=== PATIENT | male | born 1990 | race Caucasian/White ===

== ENCOUNTER 2016-07-25 22:35 | Emergency (ER) | payer OTHER ==
[~2016-07-25] VITALS: Ht 167.6 cm; Wt 75.0 kg
[~2016-07-25 22:35] MED LIST: CYCL-319 PO; IBUP-1542 PO; IBUP400T22 PO
[2016-07-25 22:44] VITALS: Ht 167.6 cm; Wt 75.0 kg
--- NOTE | 2016-07-26 00:39 | ERD ---
ER Documentation Chief Complaint Date/Time DATE: 07/26/16 TIME: 00:33 Chief Complaint left 4th finger pain/injury. got caught on a door yesterday HPI 25-year-old male complaining of left ring finger pain. Patient stated that he was trying to push close a gate yesterday, when the gate stop and expectantly, hyperextended his left ring finger. He is complaining of pain at the PIP joint. He is unable to bend his affected finger due to pain. Denies any other injuries. ROS All systems reviewed and are negative except as per history of present illness. Medications Home Meds Active Scripts Ibuprofen* (Motrin*) 600 Mg Tab, 600 MG PO Q6H Y for PAIN AND OR ELEVATED TEMP, #30 TAB Prov:ALICIA GREWAL CONCRETE ENGINEERING TECHNICIAN 07/26/16 Cyclobenzaprine Hcl* (Cyclobenzaprine Hcl*) 10 Mg Tablet, 10 MG PO TID, #15 TAB Prov:RAVEN GARZA-C 11/23/15 Ibuprofen* (Motrin*) 400 Mg Tab, 400 MG PO Q6H Y for PAIN AND OR ELEVATED TEMP, #30 TAB Prov:RAVEN GARZA-C 11/23/15 Ibuprofen* (Motrin*) 600 Mg Tab, 600 MG PO Q6, #30 TAB Prov:KAREN WHITE 11/20/14 Allergies Allergies: Coded Allergies: No Known Allergy (Unverified , 07/25/16) PMhx/Soc Medical and Surgical Hx: pt denies Medical Hx, pt denies Surgical Hx Hx Alcohol Use: Yes (SOCIAL) Hx Substance Use: Yes (MJ) Hx Tobacco Use: No Smoking Status: Never smoker Physical Exam Vitals Vital Signs Date Time Temp Pulse Resp B/P Pulse Ox O2 Delivery O2 Flow Rate FiO2 07/25/16 22:44 98.7 76 20 131/63 99 Physical Exam General impression: Well-developed, well-nourished. Alert, oriented, in no acute distress Head: Normocephalic, atraumatic. Neck: Supple, nontender. No lymphadenopathy. No nuchal rigidity. Respiration: Normal respiratory effort. Lungs clear to auscultate bilaterally. No wheezes, rales or rhonchi. Cardiovascular: Regular rate and rhythm. No murmurs or extra heart sounds. Abdomen: Abdomen normal to inspection. Nontender. No masses or organomegaly. Bowel sounds normal. Back: Normal to inspection. No midline spine tenderness. No CVA tenderness. Extremities: Left ring finger PIP joint swollen, and tender. Decreased range of motion due to pain. Neurovascularly intact distal to the injury. Neuro: Mental status normal, speech normal. STITCH BONDING MACHINE OPERATOR grossly intact. Skin: Normal turgor. No rash or lesions. Psych: Normal mood and affect. Results 24 hrs Current Medications Medications (Trade) Dose Ordered Sig/Dipak Route PRN Reason Start Time Stop Time Status Last Admin Dose Admin Ibuprofen (Motrin) 600 mg ONCE ONCE PO 07/26/16 01:00 07/26/16 01:01 DC 07/26/16 00:49 Procedures/MDM X-ray of left ring finger negative for fractures or dislocations. Likely patient sustained a sprain of the finger. The area of injury was immobilized with a metal finger splint. Patient was noted to be comfortable and neurovascularly intact both before and after the immobilization. Patient appears well, stable for discharge and outpatient management. Medical decision making shared with patient and family. Education provided to patient and family. Patient and family expressed understanding of the plan. Medications on discharge: Ibuprofen. Follow-up: Primary care provider in 2-3 days or return to ED if worse. ALICIA GREWAL NP Jul 26, 2016 00:39
[2016-07-26] MEDS ORDERED: IBUPROFEN 600 MG TAB PO ONE (01:00)
--- NOTE | 2016-07-26 01:34 | RADRPT ---
PROCEDURE: LEFT FOURTH DIGIT - 3 VIEWS CLINICAL INDICATION: 25-year-old male with left fourth digit pain. TECHNIQUE: AP, lateral and oblique views of the left fourth digit were obtained. The images review ed on a PACS workstation. COMPARISON: None. FINDINGS: The bones of the fourth digit appear intact, with no evidence of fracture, dislocation, or subluxati on. The joint spaces are preserved. Bone mineralization is within normal limits. No radiopaque fore ign body is seen. IMPRESSION: Unremarkable left fourth digit radiographs. .Gabriele Boone MD, MD Date Time Electronically viewed and signed by .Gabriele Boone MD, MD on 07/26/2016 01:34 .M/
[2016-07-26] MEDS ORDERED: IBUP-1542 PO (01:43)
[2016-07-26 01:53] VITALS: BP 127/78; PULSE 62; RESP 16
== END 2016-07-26 01:54 | disposition home or self-care (01) ==
LOC: FTE 22:35
DX: S69.92XA Unspecified injury of left wrist, hand and finger(s), initial encounter (principal); W23.1XXA Caught, crushed, jammed, or pinched between stationary objects, initial encounter; Y92.9 Unspecified place or not applicable
CPT/HCPCS: 29130; 73140; Z7610

== ENCOUNTER 2017-07-06 23:32 | Emergency (ER) | END 2017-07-07 03:38 | disposition home or self-care (01) ==

== ENCOUNTER 2018-06-17 02:24 | Emergency (ER) | payer OTHER ==
[~2018-06-17] VITALS: Ht 167.6 cm; Wt 76.4 kg
[~2018-06-17 02:24] MED LIST changes: -CYCL-319 PO; +CYCL10TA7 PO; +HYDR-4011 PO; +IBUP-1561 PO; -IBUP400T22 PO
[2018-06-17 02:28] VITALS: BP 132/88; PULSE 79; RESP 20; Ht 167.6 cm; Wt 76.4 kg
[2018-06-17] MEDS ORDERED: ACETAMINOPHEN 325 MG TAB PO ONE (03:00)
[2018-06-17] MEDS ORDERED: DIPHTH/TET/ACEL PERTUSS (ADULT) 0.5 ML VIAL IM* ONE (03:00)
[2018-06-17] MEDS ORDERED: AMOXICILLIN/CLAV 875 MG TAB PO ONE (03:00)
[2018-06-17] MEDS ORDERED: LIDOCAINE 1% (MPF) 5 ML VIAL INFIL ONE (03:30)
[2018-06-17] MEDS ORDERED: ACET500C5 PO (03:46)
[2018-06-17] MEDS ORDERED: AMOX1TAB10 PO (03:46)
--- NOTE | 2018-06-17 03:49 | ERD ---
ER Documentation Chief Complaint Chief Complaint ATTACKED BY DOG. LAC TO NOSE. TRIED TO BREAK UP DOG FIGHT HPI 27-year-old male presents with a dog bite laceration over his nasal bridge. He was trying to break up a fight between 2 dogs. Tetanus is not up-to-date. Denies any loss of consciousness, or bony injury by report. ROS All systems reviewed and are negative except as per history of present illness. Medications Home Meds Active Scripts Acetaminophen* (Tylophen*) 500 Mg Capsule, 1 CAP PO Q6H PRN for PAIN AND OR ELEVATED TEMP, #15 CAP Prov:FRANCES CARABALLO MD 06/17/18 Amoxicillin/Potassium Clav (Amox-Clav 875-125 mg Tablet) 875-125 mg Tab, 1 TAB PO BID for 7 Days, #14 TAB Prov:FRANCES CARABALLO MD 06/17/18 Hydrocodone/Acetaminophen (Retsof 5-325 Tablet) 1 Each Tablet, 1 TAB PO Q6H PRN for SEVERE PAIN LEVEL 7-10, #20 TAB Prov:DINA RUBY RIPRAP PLACING SUPERVISOR 07/07/17 Cyclobenzaprine Hcl* (Cyclobenzaprine Hcl*) 10 Mg Tablet, 10 MG PO TID, #15 TAB Prov:DINA RUBY RIPRAP PLACING SUPERVISOR 07/07/17 Ibuprofen* (Motrin*) 600 Mg Tab, 600 MG PO Q6H PRN for PAIN AND OR ELEVATED TEMP , #30 TAB Prov:DINA RUBY RIPRAP PLACING SUPERVISOR 07/07/17 Ibuprofen* (Motrin*) 600 Mg Tab, 600 MG PO Q6H PRN for PAIN AND OR ELEVATED TEMP, #30 TAB Prov:ALICIA GREWAL NP 07/26/16 Cyclobenzaprine Hcl* (Cyclobenzaprine Hcl*) 10 Mg Tablet, 10 MG PO TID, #15 TAB Prov:RAVEN GARZA PA-C 11/23/15 Ibuprofen* (Motrin*) 400 Mg Tab, 400 MG PO Q6H PRN for PAIN AND OR ELEVATED TEMP, #30 TAB Prov:RAVEN GARZA PA-C 11/23/15 Ibuprofen* (Motrin*) 600 Mg Tab, 600 MG PO Q6, #30 TAB Prov:KAREN WHITE 11/20/14 Allergies Allergies: Coded Allergies: No Known Allergy (Unverified , 07/25/16) PMhx/Soc Medical and Surgical Hx: pt denies Medical Hx, pt denies Surgical Hx History of Surgery: No Anesthesia Reaction: No Hx Neurological Disorder: No Hx Respiratory Disorders: No Hx Cardiac Disorders: No Hx Psychiatric Problems: No Hx Miscellaneous Medical Probl: No Hx Alcohol Use: No Hx Substance Use: Yes (marijuana use) Hx Tobacco Use: No FmHx Family History: No diabetes, No coronary disease, No other Physical Exam Vitals Vital Signs Date Temp Pulse Resp B/P (MAP) Pulse Ox O2 O2 Flow FiO2 Time Delivery Rate 06/17/18 98.0 79 20 132/88 100 02:28 (103) Physical Exam Const: No acute distress Head: Atraumatic Eyes: Normal Conjunctiva ENT: Normal External Ears, Nose and Mouth. Multiple lacerations on the bridg e of the nose. 2 small superficial wounds less than 0.5 cm. There is 1 0.75 cm laceration on the superior bridge approximately 1.2 cm flap type lesion on the right middle bridge. Septal hematoma, bony tenderness or deformities or crepitance. Neck: Full range of motion. No meningismus. Resp: Clear to auscultation bilaterally Cardio: Regular rate and rhythm, no murmurs Abd: Soft, non tender, non distended. Normal bowel sounds Skin: No petechiae or rashes Back: No midline or flank tenderness Ext: No cyanosis, or edema Neur: Awake and alert Psych: Normal Mood and Affect Results 24 hrs Current Medications Medications Dose Sig/Dipak Start Time Status Last (Trade) Ordered Route PRN Stop Time Admin Dose Reason Admin 650 mg ONCE ONCE 06/17/18 DC Acetaminophen PO 03:00 06/17/18 (Tylenol 03:01 Tab) Diphtheria/ 0.5 ml ONCE ONCE 06/17/18 DC Tetanus/Acell IM* 03:00 06/17/18 Pertussis 03:01 (Adacel) 875 mg ONCE ONCE 06/17/18 DC Amoxicillin/ PO 03:00 06/17/18 Clavulanate 03:01 Potassium (Augmentin) Lidocaine 5 ml ONCE ONCE 06/17/18 DC (Xylocaine INFIL 03:30 06/17/18 1% (Mpf)) 03:31 Procedures/MDM AP/lateral 2 view nasal bone x-ray shows no appreciable fracture, foreign body. Impression-normal appearing nasal bone x-ray patient was counseled on risk of s uturing dog bite lacerations. Given the poor cosmesis recommending a few sutures for approximation patient agrees with the plan. Seizure note-patient was given a tetanus booster. Nasal lacerations were irrigated copiously with normal saline. 1 cc lidocaine was used for local filtration. 2 6-0 nylon sutures were used to approximate the superior laceration and 3 were placed on the middle laceration to reapproximate the flap. Patient tolerated procedure well and the wound was dressed. Patient was given Augmentin 875 mg by mouth. Discharged home with a prescription of Tylenol, recommendations for 2-day wound check in 5 days suture removal. Should return sooner for fevers, redness, new or worsening symptoms. The patient was stable with no new complaints during the ER course. Clinically, there is no current evidence to suggest meningitis, sepsis, acute abdomen, pneumonia, stroke, acute coronary syndrome, pulmonary embolism, aortic dissection or any other emergent condition appearing to require further e valuation or hospitalization. Patient counseled regarding my diagnostic impression and care plan. Prior to discharge all questions answered. Pt agrees with treatment plan and understands strict return precautions. Pt is instructed to follow up with primary care provider within 24-48 hours. Precautionary instructions provided including instructions to return to the ER if not improv ing or for any worsening or changing symptoms or concerns. Departure Diagnosis: Primary Impression: Laceration Additional Impression: Dog bite Encounter type: initial encounter Qualified Codes: W54.0XXA - Bitten by dog, initial encounter Condition: Stable Patient Instructions: Dog Bite, Laceration, Face (Suture Or Tape) Additional Instructions: Wound check in 2 days and suture removal in 5 days. Recheck sooner for new or worsening symptoms. FRANCES CARABALLO MD Jun 17, 2018 03:49
== END 2018-06-17 05:20 | disposition home or self-care (01) ==
LOC: FTE 02:24
DX: S01.21XA Laceration without foreign body of nose, initial encounter (principal); W54.0XXA Bitten by dog, initial encounter; Y92.9 Unspecified place or not applicable; Z23 Encounter for immunization
CPT/HCPCS: 12013; 70160; 90471; 90715; Z7502; Z7610

== ENCOUNTER 2018-06-22 13:48 | Emergency (ER) | payer OTHER ==
[~2018-06-22] VITALS: Ht 167.6 cm; Wt 80.0 kg
[~2018-06-22 13:48] MED LIST changes: +ACET500C5 PO; +AMOX1TAB10 PO
[2018-06-22 14:11] VITALS: Ht 167.6 cm; Wt 80.0 kg
--- NOTE | 2018-06-22 15:30 | ERD ---
ER Documentation Chief Complaint Chief Complaint 2 DAY SUTURE CHECK HPI This is a 27-year-old male presents ED for wound check. Patient states that he had sutures placed on June 17, 2018. Patient denies any fever, chills, redness, swelling, tenderness or warmth along wound. No purulent drainage coming from wound. No complaints at this time ROS All systems reviewed and are negative except as per history of present illness. Medications Home Meds Active Scripts Acetaminophen* (Tylophen*) 500 Mg Capsule, 1 CAP PO Q6H PRN for PAIN AND OR ELEVATED TEMP, #15 CAP Prov:FRANCES CARABALLO MD 06/17/18 Amoxicillin/Potassium Clav (Amox-Clav 875-125 mg Tablet) 875-125 mg Tab, 1 TAB PO BID for 7 Days, #14 TAB Prov:FRANCES CARABALLO MD 06/17/18 Hydrocodone/Acetaminophen (Searcy 5-325 Tablet) 1 Each Tablet, 1 TAB PO Q6H PRN for SEVERE PAIN LEVEL 7-10, #20 TAB Prov:DINA RUBY NP 07/07/17 Cyclobenzaprine Hcl* (Cyclobenzaprine Hcl*) 10 Mg Tablet, 10 MG PO TID, #15 TAB Prov:DINA RUBY NP 07/07/17 Ibuprofen* (Motrin*) 600 Mg Tab, 600 MG PO Q6H PRN for PAIN AND OR ELEVATED TEMP, #30 TAB Prov:DINA RUBY MEDICAL DRIVER 07/07/17 Ibuprofen* (Motrin*) 600 Mg Tab, 600 MG PO Q6H PRN for PAIN AND OR ELEVATED TEMP, #30 TAB Prov:ALICIA GREWAL NP 07/26/16 Cyclobenzaprine Hcl* (Cyclobenzaprine Hcl*) 10 Mg Tablet, 10 MG PO TID, #15 TAB Prov:RAVEN GARZA PA-C 11/23/15 Ibuprofen* (Motrin*) 400 Mg Tab, 400 MG PO Q6H PRN for PAIN AND OR ELEVATED TEMP, #30 TAB Prov:RAVEN GARZA PA-C 11/23/15 Ibuprofen* (Motrin*) 600 Mg Tab, 600 MG PO Q6, #30 TAB Prov:KAREN WHITE 11/20/14 Allergies Allergies: Coded Allergies: No Known Allergy (Unverified , 06/22/18) PMhx/Soc Medical and Surgical Hx: pt denies Medical Hx, pt denies Surgical Hx History of Surgery: No Anesthesia Reaction: No Hx Neurological Disorder: No Hx Respiratory Disorders: No Hx Cardiac Disorders: No Hx Psychiatric Problems: No Hx Miscellaneous Medical Probl: No Hx Alcohol Use: No Hx Substance Use: Yes (marijuana use) Hx Tobacco Use: No Smoking Status: Never smoker FmHx Family History: No diabetes Physical Exam Vitals Vital Signs Date Temp Pulse Resp B/P (MAP) Pulse Ox O2 O2 Flow FiO2 Time Delivery Rate 06/22/18 98.1 78 18 125/77 97 14:11 (93) Physical Exam Const: No acute distress Head: Atraumatic Eyes: Normal Conjunctiva ENT: Normal External Ears, Nose and Mouth. Neck: Full range of motion. No meningismus. Resp: Clear to auscultation bilaterally Cardio: Regular rate and rhythm, no murmur Skin: Sutures in place with good wound approximation, no redness, swelling, tenderness or warmth, no purulent drainage Psych: Normal Mood and Affect Procedures/MDM ER COURSE: The patient was stable throughout ED course. I kept the patient and/or family informed of laboratory and diagnostic imaging results throughout the emergency room course. The patient was promptly evaluated and a treatment plan was devised based on H&P and other data. This plan was discussed with the patient who agreed and had no further questions or concerns prior to discharge. MEDICAL DECISION MAKIN-year-old male presents here for wound check. The wound is clean, dry and intact with no evidence of infection. Patient has good wound closure and good wound approximation. There is no surrounding erythema, warmth, tenderness or lymphatic streaking. Low suspicion for deep space infection, compartment syndrome, cellulitis, neurovascular injury, sepsis. Patient's vitals are stable and she can be managed with close outpatient follow-up. Advised patient have sutures removed in 5 days. Advised patient follow-up with primary care in the next 48 hours. Advised to return to ED with any worsening symptoms. DISPOSITION PLAN: We discussed follow up with the patient's primary care doctor within 24 to 48 hours. Patient counseled regarding my diagnostic impression and care plan. Prior to discharge all questions answered. Pt agrees with treatment plan and understands strict return precautions. Precautionary instructions provided including instructions to return to the ER if not improving or for any worsening or changing symptoms or concerns. ExitCare instructions provided. Prior to discharge, patients vital signs have been reviewed SPECIALIST FOLLOW UP RECOMMENDED: None Patient has been advised to follow up with primary care in 1-2 days. Disclaimer: Inadvertent spelling and grammatical errors are likely due to EHR/dictation software use and do not reflect on the overall quality of patient care. Also, please note that the electronic time recorded on this note does not necessarily reflect the actual time of the patient encounter. Departure Diagnosis: Primary Impression: Encounter for wound re-check Condition: Stable Patient Instructions: Wound Check, Lac F/U (No Infection) Referrals: [facility] YOU HAVE RECEIVED A MEDICAL SCREENING EXAM AND THE RESULTS INDICATE THAT YOU DO NOT HAVE A CONDITION THAT REQUIRES URGENT TREATMENT IN THE EMERGENCY DEPARTMENT. FURTHER EVALUATION AND TREATMENT OF YOUR CONDITION CAN WAIT UNTIL YOU ARE SEEN IN YOUR DOCTORS OFFICE WITHIN THE NEXT 1-2 DAYS. IT IS YOUR RESPONSIBILITY TO MAKE AN APPOINTMENT FOR FOLOW-UP CARE. IF YOU HAVE A PRIMARY DOCTOR --you should call your primary doctor and schedule an appointment IF YOU DO NOT HAVE A PRIMARY DOCTOR YOU CAN CALL OUR PHYSICIAN REFERRAL HOTLINE AT IF YOU CAN NOT AFFORD TO SEE A PHYSICIAN YOU CAN CHOSE FROM THE FOLLOWING [facility] CLINICS [facility] [address] [facility]. [facility] [address] [facility] [address] [facility]. [facility] [address] [facility]. [facility] [address] [facility]. [facility]. [address] Additional Instructions: Return in 5 days to have your sutures removed. Patient advised to return to the ED immediately for new or worsening symptoms. Patient advised to follow up with primary care provider in the next 24-48 hours. Patient verbalized understanding and agrees with treatment plan and course of action. If patient has no primary care they may follow up with one of the community clinics listed on the following page or one of the options listed below [facility] + [facility] [address] [place] [id number] or [facility] [address] [place] [address] or [facility] [address] [place] [address] EKATERINA LEAL PA-C Jun 22, 2018 15:30
[2018-06-22 15:42] VITALS: BP 130/81; PULSE 79; RESP 18
[2018-06-27] MEDS ORDERED: CLIN300C10 PO (16:19)
== END 2018-06-22 16:03 | disposition home or self-care (01) ==
LOC: FTE 13:48
DX: Z48.01 Encounter for change or removal of surgical wound dressing (principal)
CPT/HCPCS: 99281

== ENCOUNTER 2018-06-28 14:38 | Emergency (ER) | payer OTHER ==
[~2018-06-28] VITALS: Wt 80.6 kg
[~2018-06-28 14:38] MED LIST changes: +CLIN300C10 PO
[2018-06-28 14:40] VITALS: BP 136/75; PULSE 77; RESP 20
--- NOTE | 2018-06-28 15:44 | ERD ---
ER Documentation Chief Complaint Chief Complaint wound rechk: bridge of nose. seen here yesterday. HPI 27-year-old male patient with no significant past medical history presents to the ED for a suture removal of his nose. States that he sustained a dog bite, 10 days ago on June 17, 2017. States that he finished all of his antibiotics. Denies any fever, chills, loss of sensation, loss of range of motion. Patient reports that he was updated with his tetanus vaccine. Patient reports that he has been taking new antibiotic, clindamycin starting yesterday. ROS All systems reviewed and are negative except as per history of present illness. Medications Home Meds Active Scripts Clindamycin Hcl* (Clindamycin Hcl*) 300 Mg Capsule, 300 MG PO TID for 5 Days, CAP Prov:RAVEN GARZA PA-C 06/27/18 Acetaminophen* (Tylophen*) 500 Mg Capsule, 1 CAP PO Q6H PRN for PAIN AND OR ELEVATED TEMP, #15 CAP Prov:FRANCES CARABALLO MD 06/17/18 Amoxicillin/Potassium Clav (Amox-Clav 875-125 mg Tablet) 875-125 mg Tab, 1 TAB PO BID for 7 Days, #14 TAB Prov:FRANCES CARABALLO MD 06/17/18 Hydrocodone/Acetaminophen (Solen 5-325 Tablet) 1 Each Tablet, 1 TAB PO Q6H PRN for SEVERE PAIN LEVEL 7-10, #20 TAB Prov:DINA RUBY NP 07/07/17 Cyclobenzaprine Hcl* (Cyclobenzaprine Hcl*) 10 Mg Tablet, 10 MG PO TID, #15 TAB Prov:DINA RUBY NP 07/07/17 Ibuprofen* (Motrin*) 600 Mg Tab, 600 MG PO Q6H PRN for PAIN AND OR ELEVATED TEMP, #30 TAB Prov:DINA RUBY NP 07/07/17 Ibuprofen* (Motrin*) 600 Mg Tab, 600 MG PO Q6H PRN for PAIN AND OR ELEVATED TEMP, #30 TAB Prov:ALICIA GREWAL NP 07/26/16 Cyclobenzaprine Hcl* (Cyclobenzaprine Hcl*) 10 Mg Tablet, 10 MG PO TID, #15 TAB Prov:RAVEN GARZA Kathy ELLSWORTH 11/23/15 Ibuprofen* (Motrin*) 400 Mg Tab, 400 MG PO Q6H PRN for PAIN AND OR ELEVATED TEMP, #30 TAB Prov:RAVEN GARZA SENG 11/23/15 Ibuprofen* (Motrin*) 600 Mg Tab, 600 MG PO Q6, #30 TAB Prov:KAREN WHITE Chaim 11/20/14 Allergies Allergies: Coded Allergies: No Known Allergy (Unverified , 06/22/18) PMhx/Soc History of Surgery: No Anesthesia Reaction: No Hx Neurological Disorder: No Hx Respiratory Disorders: No Hx Cardiac Disorders: No Hx Psychiatric Problems: No Hx Miscellaneous Medical Probl: No Hx Alcohol Use: No Hx Substance Use: Yes (marijuana use) Hx Tobacco Use: No Physical Exam Vitals Vital Signs Date Temp Pulse Resp B/P (MAP) Pulse Ox O2 O2 Flow FiO2 Time Delivery Rate 06/28/18 97.1 77 20 136/75 98 14:40 (95) Physical Exam Const: [id number], well-nourished. In no acute distress. Head: Atraumatic, normocephalic Eyes: Normal Conjunctiva without injection. No purulent discharge. PERRL. EOMI ENT: Normal external ear. Ear canal without erythema. Tympanic membrane pearly hernandez without effusion or bulging. Nasal canal clear with normal turbinates. Moist oropharynx without tonsillar exudates. Non-erythematous pharynx. Uvula midline. No drooling. No trismus. Neck: Full range of motion. No meningismus. No cervical lymphadenopathy. Resp: Clear to auscultation bilaterally. No wheezing, rhonchi, rales, or crac kles. No accessory muscle use. No retractions. Cardio: Regular rate and rhythm. No murmurs, rubs or gallops. Abd: Soft, non tender, non distended. Normal bowel sounds. No palpable masses. No rebound tenderness. No guarding. Skin: No petechiae or rashes. Star shaped dog bite with slight erythema but no fluctuance or induration on bridge of nose. No dehiscence. Back: No midline tenderness. No CVA tenderness. Ext: No cyanosis, or edema. Neur: Awake and alert. Psych: Normal Mood and Affect Procedures/MDM 27-year-old male patient with no significant past medical history presents to the ED for a suture removal of his nose. Patient is afebrile and nontoxic- appearing. 2 sutures removed without any difficulty. No evidence of dehiscen ce. Slight erythema noted. Instructed patient to continue taking clindamycin and return to the ED for any worsening symptoms. Low suspicion for anaphylaxis, scabies, SJS/TEN, TSS, Lyme's Disease, syphilis, RMSF, shingles, disseminated gonorrhea chlamydia, DIC, TTP, ITP, erythema multiforme, sepsis, cellulitis, necrotizing fasciitis, gangrene, meningococcemia, allergic contact dermatitis, urticaria, eczema, tinea infection, or other emergent conditions. Diagnosis: Encounter for removal of sutures Follow up with primary care physician in 2 days. Wound check in 2 days. Instructed patient to return to the ED sooner for any worsening symptoms. Patient's questions were answered. Patient is hemodynamically stable. Patient understood and agreed with discharge plan. Patient discharged stable. Disclaimer: Inadvertent spelling and grammatical errors are likely due to EHR/dictation software use and do not reflect on the overall quality of patient care. Also, please note that the electronic time recorded on this note does not necessarily reflect the actual time of the patient encounter. Departure Diagnosis: Primary Impression: Encounter for removal of sutures Condition: Stable Patient Instructions: Dog Bite, Suture Removal, No Complication Referrals: [facility] YOU HAVE RECEIVED A MEDICAL SCREENING EXAM AND THE RESULTS INDICATE THAT YOU DO NOT HAVE A CONDITION THAT REQUIRES URGENT TREATMENT IN THE EMERGENCY DEPARTMENT. FURTHER EVALUATION AND TREATMENT OF YOUR CONDITION CAN WAIT UNTIL YOU ARE SEEN IN YOUR DOCTORS OFFICE WITHIN THE NEXT 1-2 DAYS. IT IS YOUR RESPONSIBILITY TO MAKE AN APPOINTMENT FOR FOLOW-UP CARE. IF YOU HAVE A PRIMARY DOCTOR --you should call your primary doctor and schedule an appointment IF YOU DO NOT HAVE A PRIMARY DOCTOR YOU CAN CALL OUR PHYSICIAN REFERRAL HOTLINE AT IF YOU CAN NOT AFFORD TO SEE A PHYSICIAN YOU CAN CHOSE FROM THE FOLLOWING [facility] [address] [facility] [address] [facility] [facility] [address] [facility] [address] [facility]. [facility] [address] [facility]. [facility] [address] [facility]. [facility] YOU HAVE RECEIVED A MEDICAL SCREENING EXAM AND THE RESULTS INDICATE THAT YOU DO NOT HAVE A CONDITION THAT REQUIRES URGENT TREATMENT IN THE EMERGENCY DEPARTMENT. FURTHER EVALUATION AND TREATMENT OF YOUR CONDITION CAN WAIT UNTIL YOU ARE SEEN IN YOUR DOCTORS OFFICE WITHIN THE NEXT 1-2 DAYS. IT IS YOUR RESPONSIBILITY TO MAKE AN APPOINTMENT FOR FOLOW-UP CARE. IF YOU HAVE A PRIMARY DOCTOR --you should call your primary doctor and schedule and appointment IF YOU DO NOT HAVE A PRIMARY DOCTOR YOU CAN CALL OUR PHYSICIAN REFERRAL HOTLINE AT . IF YOU CAN NOT AFFORD TO SEE A PHYSICIAN YOU CAN CHOSE FROM THE FOLLOWING [facility] INSTITUTIONS: [facility] [address] [place] [address] [facility] [address] [place] [place] [id number] [place] [address] [address] [place] [address] [facility] URGENT CARE/SPECIALTIES Additional Instructions: Call your primary care doctor TOMORROW for an appointment during the next 2-3 days.See the doctor sooner or return here if your condition worsens before your appointment time. Follow up in 2 days in your clinic for wound check. VENU PRESTON PA-C Jun 28, 2018 15:44
== END 2018-06-28 16:32 | disposition home or self-care (01) ==
LOC: FTE 14:38
DX: Z48.02 Encounter for removal of sutures (principal)
CPT/HCPCS: 99281

== ENCOUNTER 2018-12-04 15:26 | Emergency (ER) | payer OTHER ==
[~2018-12-04] VITALS: Ht 167.6 cm; Wt 77.1 kg
[2018-12-04 15:32] VITALS: Ht 167.6 cm; Wt 77.1 kg
[2018-12-04] MEDS ORDERED: KETOROLAC 60 MG INJ IM STA (16:15)
[2018-12-04] MEDS ORDERED: DEXAMETHASONE 10 MG/ML 1 ML INJ IM ONE (16:30)
[2018-12-04] MEDS ORDERED: MED4DP PO (17:20)
[2018-12-04] MEDS ORDERED: HYDR-4011 PO (17:20)
[2018-12-04] MEDS ORDERED: NAPR-985 PO (17:20)
[2018-12-04] MEDS ORDERED: CYCL10TA7 PO (17:20)
[2018-12-04 17:27] VITALS: BP 127/65; PULSE 71; RESP 18
--- NOTE | 2018-12-04 18:26 | ERD ---
ER Documentation Chief Complaint Chief Complaint LT SIDE NECK PAIN X FEW WEEKS WITH TINGLING IN LT ARM HPI 28-year-old male presenting with pain to the left side of his neck over the last few weeks. Patient states this started 3 weeks ago he was skateboarding. He states that is progressively gotten worse and is worse with movement. He denies any fevers but he does have some numbness going down his leg. He denies any chest pain or shortness of breath. Patient is right-hand dominant. He has not taken medications for the symptoms. Denies medical problems. NKDA. Surgical history denies. Social history smokes marijuana daily and uses cocaine weekly. ROS All systems reviewed and are negative except as per history of present illness. Medications Home Meds Active Scripts Methylprednisolone* (Medrol* DOSE PACK) 4 Mg/Dose-Pack Tab.ds.pk, 4 MG PO . DIRECTED, #1 PACKET Prov:YARELY KAUFMAN PA-C 12/04/18 Cyclobenzaprine Hcl* (Cyclobenzaprine Hcl*) 10 Mg Tablet, 10 MG PO TID, #15 TAB Prov:YARELY KAUFMAN PA-C 12/04/18 Naproxen* (Naprosyn*) 500 Mg Tablet, 500 MG PO BID PRN for PAIN AND/OR INFLAMMATION, #30 TAB Prov:YARELY KAUFMAN PA-C 12/04/18 Hydrocodone/Acetaminophen ([place] 5-325 Tablet) 1 Each Tablet, 1 TAB PO Q6H PRN for PAIN, #7 TAB Prov:YARELY KAUFMAN PA-C 12/04/18 Clindamycin Hcl* (Clindamycin Hcl*) 300 Mg Capsule, 300 MG PO TID for 5 Days, CAP Prov:RAVEN GARZA PA-C 06/27/18 Acetaminophen* (Tylophen*) 500 Mg Capsule, 1 CAP PO Q6H PRN for PAIN AND OR ELEVATED TEMP, #15 CAP Prov:FRANCES CARABALLO MD 06/17/18 Amoxicillin/Potassium Clav (Amox-Clav 875-125 mg Tablet) 875-125 mg Tab, 1 TAB PO BID for 7 Days, #14 TAB Prov:FRANCES CARABALLO MD 06/17/18 Hydrocodone/Acetaminophen ([place] 5-325 Tablet) 1 Each Tablet, 1 TAB PO Q6H PRN for SEVERE PAIN LEVEL 7-10, #20 TAB Prov:DINA RUBY SKI LIFT OPERATOR 07/07/17 Cyclobenzaprine Hcl* (Cyclobenzaprine Hcl*) 10 Mg Tablet, 10 MG PO TID, #15 TAB Prov:DINA RUBY. SKI LIFT OPERATOR 07/07/17 Ibuprofen* (Motrin*) 600 Mg Tab, 600 MG PO Q6H PRN for PAIN AND OR ELEVATED TEMP, #30 TAB Prov:DINA RUBY. SKI LIFT OPERATOR 07/07/17 Ibuprofen* (Motrin*) 600 Mg Tab, 600 MG PO Q6H PRN for PAIN AND OR ELEVATED TEMP, #30 TAB Prov:ALICIA GREWAL SKI LIFT OPERATOR 07/26/16 Cyclobenzaprine Hcl* (Cyclobenzaprine Hcl*) 10 Mg Tablet, 10 MG PO TID, #15 TAB Prov:RAVEN GARZA PA-C 11/23/15 Ibuprofen* (Motrin*) 400 Mg Tab, 400 MG PO Q6H PRN for PAIN AND OR ELEVATED TEMP, #30 TAB Prov:RAVEN GARZA PA-C 11/23/15 Ibuprofen* (Motrin*) 600 Mg Tab, 600 MG PO Q6, #30 TAB Prov:KAREN WHITE 11/20/14 Allergies Allergies: Coded Allergies: No Known Allergy (Unverified , 06/22/18) PMhx/Soc Medical and Surgical Hx: pt denies Medical Hx, pt denies Surgical Hx History of Surgery: No Anesthesia Reaction: No Hx Neurological Disorder: No Hx Respiratory Disorders: No Hx Cardiac Disorders: No Hx Psychiatric Problems: No Hx Miscellaneous Medical Probl: No Hx Alcohol Use: No Hx Substance Use: Yes (marijuana use) Hx Tobacco Use: No Smoking Status: Never smoker FmHx Family History: No diabetes, No coronary disease, No other Physical Exam Vitals Vital Signs Date Temp Pulse Resp B/P (MAP) Pulse Ox O2 O2 Flow FiO2 Time Delivery Rate 12/04/18 98.1 71 18 127/65 98 Room Air 17:27 (85) 12/04/18 97.8 69 18 133/76 98 15:32 (95) Physical Exam GENERAL: The patient is well-appearing, well-nourished, in no acute distres NECK: Tender to palpation along paraspinous muscles of the left cervical spine. No midline tenderness. No bony step-offs. CHEST: Clear to auscultation bilaterally. There are no rales, wheezes or rhonchi HEART: Regular rate and rhythm. No murmurs, clicks, rubs or gallops. No S3 or S4. EXTREMITIES: Equal pulses bilaterally. There is no peripheral clubbing, cyanosis or edema. No focal swelling or erythema. Full range of motion. Grossly neurovascularly intact. NEUROLOGIC: Alert and oriented. Cranial nerves II through XII intact. Motor strength in all 4 extremities with 5 out of 5 strength. Sensation grossly intact. Normal speech and gait. SKIN: There is no apparent rash or petechiae. The skin is warm and dry. Results 24 hrs Current Medications Medications Dose Sig/Dipak Start Time Status Last (Trade) Ordered Route PRN Stop Time Admin Dose Reason Admin Ketorolac 60 mg ONCE STAT 12/04/18 DC 12/04/18 Tromethamine IM 16:15 16:20 (Toradol) 12/04/18 16:16 10 mg ONCE ONCE 12/04/18 DC 12/04/18 Dexamethasone IM 16:30 16:20 (Decadron) 12/04/18 16:31 Procedures/MDM DIAGNOSTIC IMAGING REPORT Patient: LESLIE NETTLES : 1990 Age: 28 Sex: M MR #: [id number] DOS: 12/04/18 1615 Ordering MD: LUL KAUFMAN PA-C Location: [facility] Room/Bed: PROCEDURE: XR Cervical Spine. CLINICAL INDICATION: neck pain TECHNIQUE: AP, lateral and odontoid views of the cervical spine were performed. The images were reviewed on a PACS workstation. COMPARISON: None. FINDINGS: The vertebral body alignment, height and osseous mineralization are normal. The intervertebral disc spaces are well maintained. There are no abnormal calcifications. The prevertebral soft tissues are normal. No radiopaque foreign bodies are identified. There is no acute fracture or subluxation. IMPRESSION: Normal cervical spine. MDM: 28-year-old male presenting with cervical strain. Patient likely has cervical radiculopathy and will be discharged with supportive medications. Patient's x-ray is within normal limits and neuro exam is within normal limits. I have low suspicion for neurovascular deficit. Patient is discharged with strict ER precautions and told to follow-up with primary care within 1 to 2 days for close evaluation. Patient is told symptoms change or worsen to return immediately to the ER. All questions answered at discharge Departure Diagnosis: Primary Impression: Neck strain Condition: Stable Patient Instructions: Neck Pain, No Trauma Additional Instructions: FOLLOW UP WITH YOUR PRIMARY CARE PHYSICIAN TOMORROW.Return to this facility if you are not improving as expected. YARELY KAUFMAN PA-C Dec 04, 2018 18:25
== END 2018-12-04 17:29 | disposition home or self-care (01) ==
LOC: FTE 15:26
DX: S16.1XXA Strain of muscle, fascia and tendon at neck level, initial encounter (principal); X58.XXXA Exposure to other specified factors, initial encounter; Y92.9 Unspecified place or not applicable
CPT/HCPCS: 72040; 96372; J1100; J1885; Z7502